=== PATIENT | male | born 1990 | race Caucasian/White ===

== ENCOUNTER 2020-12-28 21:45 | Emergency (ER) | payer BC, MEDICAID ==
[~2020-12-28] VITALS: Ht 182.9 cm; Wt 65.9 kg
[~2020-12-28 21:45] MED LIST: LIDO700A5 TOP
[2020-12-28 22:08] VITALS: BP 130/81
[2020-12-28] MEDS ORDERED: DOXY100C43 PO (23:21)
[2020-12-28] MEDS ORDERED: CEPH-585 PO (23:21)
[2020-12-28] MEDS ORDERED: DOXYCYCLINE 100MG CAPSULE PO STA (23:21)
[2020-12-28] MEDS ORDERED: cephalexin 250mg capsule PO ONE (23:25)
== END 2020-12-28 23:41 | disposition home or self-care (01) ==
LOC: ER 21:46
DX: L03.115 Cellulitis of right lower limb (principal); F17.200 Nicotine dependence, unspecified, uncomplicated; Z72.89 Other problems related to lifestyle; Z79.899 Other long term (current) drug therapy
CPT/HCPCS: 99283

== ENCOUNTER 2021-01-03 14:05 | Emergency (ER) | payer MEDICAID, OTHER ==
[~2021-01-03] VITALS: Ht 182.9 cm; Wt 65.9 kg
[~2021-01-03 14:05] MED LIST changes: +CEPH-585 PO; +DOXY100C43 PO
[2021-01-03 14:13] VITALS: BP 155/93
[2021-01-03] MEDS ORDERED: CEPH-585 PO (16:48)
== END 2021-01-03 17:00 | disposition home or self-care (01) ==
LOC: ER 14:05
DX: L03.115 Cellulitis of right lower limb (principal); Z72.89 Other problems related to lifestyle; Z79.899 Other long term (current) drug therapy
CPT/HCPCS: 99283

== ENCOUNTER 2021-03-01 18:27 | Emergency (ER) | payer MEDICAID ==
[~2021-03-01] VITALS: Ht 182.9 cm; Wt 75.6 kg
[~2021-03-01 18:27] MED LIST changes: -DOXY100C43 PO
[2021-03-01 18:34] VITALS: BP 141/89
[2021-03-01] MEDS ORDERED: penicillin V potassium 500mg tablet PO ONE (19:35)
[2021-03-01] MEDS ORDERED: PENI500T2 PO (19:38)
== END 2021-03-01 19:45 | disposition home or self-care (01) ==
LOC: ER 18:27
DX: K04.7 Periapical abscess without sinus (principal); Z72.89 Other problems related to lifestyle; Z79.2 Long term (current) use of antibiotics; Z79.899 Other long term (current) drug therapy
CPT/HCPCS: 99283

== ENCOUNTER 2021-04-08 08:12 | Emergency (ER) | payer MEDICAID ==
[~2021-04-08] VITALS: Ht 182.9 cm; Wt 68.0 kg
[2021-04-08 08:29] VITALS: BP 120/68
--- NOTE | 2021-04-08 09:30 | NUR ---
Patient seen and assessed by provider.
== END 2021-04-08 09:36 | disposition home or self-care (01) ==
LOC: ER 08:12
DX: S60.212A Contusion of left wrist, initial encounter (principal); M25.532 Pain in left wrist; Z72.89 Other problems related to lifestyle; Z79.2 Long term (current) use of antibiotics; Z79.899 Other long term (current) drug therapy; W19.XXXA Unspecified fall, initial encounter; Y93.89 Activity, other specified; Y92.89 Other specified places as the place of occurrence of the external cause; Y99.8 Other external cause status
CPT/HCPCS: 73110; 99283